=== PATIENT | female | born 1930 | race Caucasian/White ===

== ENCOUNTER 2019-06-02 12:26 | Emergency (ER) | payer MEDICARE ==
[2019-06-02] MEDS ORDERED: Promethazine HCl 25 MG/ML VIAL ONE (13:39)
--- NOTE | 2019-06-02 13:39 | RAD ---
Exam: One view chest Abdomen 2 views HISTORY: Dizziness. Possible transient ischemic attack. FINDINGS: 1. View chest: Atherosclerosis of the aorta. Normal cardiac silhouette. Small left-sided effusion. No masses or consolidation. No pneumothorax or acute osseous abnormalities Abdomen 2 views: No pneumoperitoneum. No suspicious densities in the abdomen or pelvis. Surgical clip s in the left upper quadrant. Bilateral hip prostheses are noted. Visualized bony pelvis is intact. IMPRESSION: 1. No acute cardiopulmonary process 2. Nonspecific bowel gas pattern
--- NOTE | 2019-06-02 13:44 | CT ---
BRAIN CT WITHOUT IV CONTRAST: Date: 06/02/2019 HISTORY: Dizziness, weakness, possible TIA yesterday per private physician. FINDINGS: Age-related atrophy and chronic white matter ischemic change. No focal mass or midline shift. No intr a or extra-axial hemorrhage. Sinuses and mastoids are clear of acute process. IMPRESSION: Age-related atrophy and chronic white matter ischemic change, without mass or bleed, or other acute p rocess. POS: [facility]
[2019-06-02 13:56] LABS: #Basophils 0.1 thou/uL (0.0-0.2); #Lymphocytes 1.2 thou/uL (1.20-3.40); #Monocytes 0.4 thou/uL (0.11-0.59); %Basophils 0.9 % (0.0-1.0); %Eosinophils 0.2 % (0.0-10.0); %Lymphocytes 15.7 % (21.0-51.0); %Monocytes 5.7 % (0.0-10.0); %Neutrophils 77.5 % (42.0-75.0); Hemoglobin 12.7 g/dL (12.0-16.0); Mean Corpuscular HGB CONC 33.3 g/dL (32.0-36.0); Mean Platelet Volume 6.1 fL (7.4-10.4); Platelet Count 301 thou/uL (130-400); RBC Distribution Width 12.9 % (11.5-14.5); Red Blood Cell (RBC) Count 3.84 mill/uL (4.20-5.40); White Blood Cell (WBC) Count 7.8 thou/uL (4.8-10.8)
[2019-06-02 14:09] LABS: ALT (SGPT) 10 U/L (8-55); AST (SGOT) 15 U/L (5-34); Albumin 3.8 g/dL (3.4-4.8); Alkaline Phosphatase 44 U/L (40-110); Anion Gap 14 mmol/L (10-20); BUN (Urea Nitrogen) 15 mg/dL (9.8-20.1); Bilirubin, Total 0.6 mg/dL (0.2-1.2); Calc. Creatinine Clearance 0 mL/min (70-130); Calcium 8.2 mg/dL (7.8-10.44); Carbon Dioxide 18 mmol/L (23-31); Chloride 109 mmol/L (98-107); Estimated GFR-MDRD 73; Globulin 2.4 g/dL (2.4-3.5); Glucose 106 mg/dL (83-110); Lipase 11 U/L (8-78); Potassium 3.8 mmol/L (3.5-5.1); Protein, Total 6.2 g/dL (6.0-8.3); Sodium 137 mmol/L (136-145)
[2019-06-02 14:28] LABS: Bilirubin Negative (Negative); Blood, Urine Negative (Negative); Clarity Clear (Clear); Glucose, Urine (Dipstick) Negative (Negative); Leukocyte Negative (Negative); Nitrite Negative (Negative); Protein, Urine (Dipstick) Negative (Neg-Trace); Urobilinogen 0.2 mg/dL (Less than 2)
== END 2019-06-02 17:23 | disposition short-term general hospital (02) ==
LOC: NAV ERS 12:26
DX: H49.01 Third [oculomotor] nerve palsy, right eye (principal); H53.47 Heteronymous bilateral field defects; E03.9 Hypothyroidism, unspecified; Z87.891 Personal history of nicotine dependence; Z79.899 Other long term (current) drug therapy; Z79.82 Long term (current) use of aspirin
CPT/HCPCS: 70450; 74022; 80053; 81003; 82962; 83690; 85025; 96361; 96374; 99285; J2550; 36416

== ENCOUNTER 2021-06-20 08:57 | Emergency (ER) | payer OTHER, MEDICARE | END 2021-06-20 10:26 | disposition home or self-care (01) | LOC: NAV ERS 08:57 | DX: S83.91XA Sprain of unspecified site of right knee, initial encounter (principal); S93.401A Sprain of unspecified ligament of right ankle, initial encounter; E03.9 Hypothyroidism, unspecified; W01.0XXA Fall on same level from slipping, tripping and stumbling without subsequent striking against object, initial encounter; Z87.891 Personal history of nicotine dependence; Z79.899 Other long term (current) drug therapy ==